=== PATIENT | female | born 1960 | race Caucasian/White ===

== ENCOUNTER 2019-10-03 12:27 | Outpatient (CLI) | payer OTHER, SELFPAY ==
--- NOTE | 2019-10-03 | USCV_ITS ---
Ney Denia Age: 59 Gender: F : 1960 Exam Date: 10/03/2019 12:32 Ordering Phys: Kings Madera MD (Andy) [email or web address] Technologist: Elizabeth Otero [place] [facility] [place]: FU OF CCA STENOSIS Risk Factors: Previous Vascular Surgery: Right Brachial BP: / Left Brachial BP: / Right Left Velocity (cm/s) Spectral Plaque Velocity (cm/s) Spectral Plaque Syst/Diast Broadening Syst/Diast Broadening 53.40/ 15.80 Prox CCA 94.70 / 27.60 47.30/ 17.50 Mid CCA 80.30 / 22.20 54.40/ 20.60 Distal CCA 76.00 / 30.80 131.60/42.80 Hetro Prox ICA 54.90 / 23.60 Hetro 166.80/55.10 Mid ICA 81.50 / 26.50 93.60/ 34.20 Distal ICA 65.80 / 26.00 87.20 Hetro ECA 52.40 Hetro 3.53 ICA/CCA 1.02 Antegrade Vertebral Antegrade 59.50/ 16.50 cm/s 56.10/ 14.60 cm/s Tri Subclavian Tri 217.1 97.50 0 FINDINGS Comparison 02/15/19 CONCLUSIONS Right ICA stenosis 50-69%. Moderate atheromatous plaque right carotid bulb/ICA. ICA velocities decreased from 02/17 Left ICA stenosis <50%. Mild atheromatous plaque left carotid bulb/ICA. Normal antegrade Doppler flow noted in the right vertebral artery. Normal antegrade Doppler flow noted in the left vertebral artery. Mikey Arshad MD (Electronically Signed) Final Date: 03 October 2019 16:15 S
== END 2019-10-03 12:28 | disposition home or self-care (01) ==
PROVIDERS: Family Provider Nurse Practitioner Family; Visit Provider Thoracic Surgery (Cardiothoracic Vascular Surgery)
DX: I65.23 Occlusion and stenosis of bilateral carotid arteries (principal)
CPT/HCPCS: 93880

== ENCOUNTER → 2019-10-18 09:09 | Outpatient (BNVA) | payer OTHER, SELFPAY | PROVIDERS: Family Provider Nurse Practitioner Family; PCP Nurse Practitioner Family; Visit Provider Nurse Practitioner Family | DX: I10 Essential (primary) hypertension (principal); E11.69 Type 2 diabetes mellitus with other specified complication; E78.2 Mixed hyperlipidemia; J44.1 Chronic obstructive pulmonary disease with (acute) exacerbation; I25.10 Atherosclerotic heart disease of native coronary artery without angina pectoris; J30.89 Other allergic rhinitis; I65.21 Occlusion and stenosis of right carotid artery; Z79.4 Long term (current) use of insulin | CPT/HCPCS: 80053; 80061; 83036; 84443; 85025 ==

== ENCOUNTER → 2020-04-17 09:22 | Outpatient (BNVA) | payer OTHER, SELFPAY | PROVIDERS: Family Provider Nurse Practitioner Family; PCP Nurse Practitioner Family; Visit Provider Nurse Practitioner Family | DX: E11.69 Type 2 diabetes mellitus with other specified complication (principal); Z79.4 Long term (current) use of insulin; E78.2 Mixed hyperlipidemia | CPT/HCPCS: 80053; 80061; 83036; 84443; 85025 ==

== ENCOUNTER 2020-05-21 12:13 | Outpatient (CLI) | payer OTHER, SELFPAY ==
--- NOTE | 2020-05-21 12:21 | USCV_ITS ---
Denia Brewster Age: 59 Gender: F : 1960 Exam Date: 05/21/2020 12:36 Ordering Phys: Kings Madera MD (Andy) ([email or web address]) Technologist: Karen West [place] [facility] [place]: STENOSIS Risk Factors: Previous Vascular Surgery: Right Brachial BP: / Left Brachial BP: / Right Left Velocity (cm/s) Spectral Plaque Velocity (cm/s) Spectral Plaque Syst/Diast Broadening Syst/Diast Broadening 82.70/ 16.50 Prox CCA 129.50/ 43.20 79.40/ 23.20 Mid CCA 106.10/ 36.00 65.10/ 19.80 Hetro Distal CCA 102.50/ 34.20 206.90/72.00 Hetro Prox ICA 115.10/ 50.40 140.30/37.80 Mid ICA 118.70/ 52.20 143.90/50.40 Distal ICA 115.10/ 39.60 113.60 Hetro ECA 102.50 2.61 ICA/CCA 1.12 Antegrade Vertebral Antegrade 73.80/ 32.40 cm/s 48.60/ 18.00 cm/s Tri Subclavian Tri FINDINGS Moderate to heavy heterogeneous plaques at the right bifurcation and proximal internal carotid artery Moderate heterogeneous plaques of the left bifurcation and internal carotid artery Intimal thickening in the common carotid arteries bilaterally Normal Doppler flow velocities in the external carotid arteries bilaterally Antegrade flow in the vertebral arteries bilaterally CONCLUSIONS Moderate to heavy heterogeneous plaques at the right bifurcation and proximal internal carotid arterywith velocity elevation consistent with 50-79% stenosis. Moderate heterogeneous plaques of the left bifurcation and internal carotid artery with velocity elevation consistent with 16-49% stenosis. Compared to the study from 10/03/2019, there may not be a significant change Dr Casper Wolfe MD [facility] (Electronically Signed) Final Date: 22 May 2020 17:17 S
== END 2020-05-21 12:14 | disposition home or self-care (01) ==
LOC: RAD 12:17
PROVIDERS: PCP Nurse Practitioner Family; Visit Provider Thoracic Surgery (Cardiothoracic Vascular Surgery)
DX: I65.23 Occlusion and stenosis of bilateral carotid arteries (principal)
CPT/HCPCS: 93880

== ENCOUNTER 2020-06-10 06:53 | Outpatient (CLI) | payer OTHER, SELFPAY ==
[2020-06-10 06:56] VITALS: BMI 30.2
--- NOTE | 2020-06-10 06:57 | ECG_ITS ---
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 Interpretive Statements NAME OF STUDY: LEXISCAN SESTAMIBI STRESS TEST INDICATION: Chest Pain, NOTE: Please note that this is the electrocardiogram portion of the Lexiscan/Sestamibi stress test. The perfusion scan will be documented separately. DATA: Baseline heart rate was 69 beats per minute. Baseline blood pressure was 138/81 millimeters of mercury. Target heart rate was 161. Maximum heart rate achieved was 101. which was 62 % of the predicted target heart rate. Maximum blood pressure was millimeters of mercury. The reason for ending the test was completion of the protocol. The patient did not experience any symptoms. ELECTROCARDIOGRAM: BASELINE: Sinus rhythm. Normal axis. Old anterior wall myocardial infarction, interventricular conduction delay. EXERCISE: After Lexiscan injection, no ST-T changes suggestive of ischemic noted. No arrhythmia noted. CONCLUSION: Please note due to baseline abnormality of the EKG specificity and sensitivity of the EKG portion of LexiScan MIBI stress test will be low 1. EKG not suggestive of ischemia 2. Lexiscan injection unremarkable. 3. Perfusion scan will be documented separately. Electronically Signed On 06-12-2020 16:55:49 CDT by Veda Rincon M.D. [email or web address]
--- NOTE | 2020-06-10 06:58 | NMCV_ITS ---
NM shantell perf SPECT r/s* [id number] Denia Brewster Age: 59 Gender: F : 1960 Exam Date: 06/10/2020 07:46 Ordering Phys: Veda Rincon MD ([email or web address]) Technologist: INGRID Shore Exam Location: [facility] Indications: CHEST PAIN ON EXERTION STRESS TEST [facility] IMAGE PROTOCOL Rest/Stress 1 Lexiscan Day Radiopharmaceutical Dose (mCi) Administration Site Administered by Rest: Tc-99m 10.7 IV INGRID Patterson Sestamibi Stress:Tc-99m 32.4 IV INGRID Patterson Sestamibi Rest: 10-Jun-2020 60 Discovery 630 Stress: 10-Jun-2020 30 Discovery 630 0.4mg Lexiscan. Images obtained in supine and prone position. SPECT RESULTS Technical Quality: Good Raw Data Analysis: Breast attenuation Image Corrections: No attenuation or motion correction applied Summed Stress Score: 8 Summed Rest Score: 3 Summed Difference Score: 5 PERFUSION FINDINGS Medium-sized area of patchy decreased tracer uptake noted at the baseline resting image in basal to distal inferior and distal anterior wall which showed mild reversibility in the distal inferior wall suggestive of old myocardial infarction surrounded by mild natalie-infarct ischemia in the RCA territory. Distal anterior wall reduced tracer uptake improved on stress images suggestive of artifact in the anterior wall territory. FUNCTIONAL RESULTS (calculated via Gated SPECT) Stress Image LV EF (%): 79 Stress EDV (mL):61 TID: 1.31 Stress ESV (mL):13 Rest Image LV EF (%): 79 FUNCTIONAL FINDINGS: Inferior wall hypokinesia IMPRESSIONS Medium-sized area of old myocardial infarction versus scarring surrounded by small area of mild natalie-infarct ischemia noted in the distal RCA territory. EKG segment will be documented separately. Clinical correlation advised. Veda Rincon MD (Electronically Signed) Final Date: 10 June 2020 15:29 S
[2020-06-10] MEDS: regadenoson 0.4 Mg/5 ml Syringe IVP (09:16)
[2020-06-10 09:35] VITALS: BP 175/91; PULSE 93
== END 2020-06-10 06:54 | disposition home or self-care (01) ==
LOC: CDL 06:53
PROVIDERS: PCP Nurse Practitioner Family; Visit Provider Internal Medicine Cardiovascular Disease
DX: R07.9 Chest pain, unspecified (principal); I25.10 Atherosclerotic heart disease of native coronary artery without angina pectoris; I65.21 Occlusion and stenosis of right carotid artery; I25.9 Chronic ischemic heart disease, unspecified; I25.2 Old myocardial infarction
CPT/HCPCS: 78452; 93017; A9500; J2785

== ENCOUNTER → 2020-06-15 10:31 | Outpatient (BNVA) | payer OTHER, SELFPAY | PROVIDERS: PCP Nurse Practitioner Family; Visit Provider Nurse Practitioner Family | DX: Z11.59 Encounter for screening for other viral diseases (principal) | CPT/HCPCS: 87635 ==

== ENCOUNTER 2020-06-18 07:54 | Outpatient (CLI) | payer OTHER, SELFPAY ==
--- NOTE | 2020-06-18 08:00 | CT_ITS ---
WS: [id number] CTA NECK TECHNIQUE: Contrast enhanced CTA of the neck with coronal and sagittal reformatted images and maximum intensity projection (MIP) images. NASCET criteria utilized. CLINICAL INFORMATION: carotid stenosis COMPARISON: CTA 9 5017 and ultrasound May 21, 2020 DLP: 971.[address] scans at [facility] use at least one of these dose optimization techniques: automat ed exposure control; mA and/or kV adjustment per patient size (includes targeted exams where dose is matched to clinical indication); or iterative reconstruction. FINDINGS: RIGHT: Right common carotid artery is patent. Stenosis right proximal ICA measures 76%. Moderate calc ified atheromatous disease. Right ICA is patent to the skull base. Moderate Cavernous carotid calcifi cation. LEFT: Left common carotid artery is patent. Mild atheromatous plaque left carotid bulb extending into the ICA with 56% stenosis. Left ICA is patent to the skull base. Moderate left cavernous chronic froy cification. Both vertebral arteries are patent. Right dominant vertebral artery. Proximal basilar artery is paten t. Mastoid air cells well aerated. Small retention cyst right maxillary sinus. Small amount of fluid in the right sphenoid sinus. Lung apices are well aerated. Mild spondylitic changes cervical spine. CT/CT angio neck [id number] IMPRESSION: 1. Right proximal ICA stenosis measures 76% slightly progressed from June 06, 2018 2. Left proximal ICA stenosis measures 56% 3. Right dominant vertebral artery. Both vertebral arteries are patent. 4. Moderate cavernous carotid calcification.
[2020-06-18] MEDS: iodixanol 320 mg/mL 100mL Btl IV (08:33)
== END 2020-06-18 07:55 | disposition home or self-care (01) ==
LOC: RADWPI 08:01
PROVIDERS: Family Provider Nurse Practitioner Family; PCP Nurse Practitioner Family; Visit Provider Thoracic Surgery (Cardiothoracic Vascular Surgery)
DX: I65.23 Occlusion and stenosis of bilateral carotid arteries (principal)
CPT/HCPCS: 70498; Q9967

== ENCOUNTER → 2020-08-21 13:08 | Outpatient (BNVA) | payer OTHER, SELFPAY | PROVIDERS: PCP Nurse Practitioner Family; Visit Provider Internal Medicine Cardiovascular Disease | DX: U07.1 COVID-19 (principal) | CPT/HCPCS: 87635 ==

== ENCOUNTER 2020-08-25 09:04 | Day surgery (SDC) | payer OTHER, SELFPAY ==
[2020-08-25] VITALS (47 sets, daily range): BP systolic 118–154; BP diastolic 56–86; PULSE 65–107; RESP 12–22; TEMP 36.5–36.7; O2SAT 93–96; BMI 29.4
--- NOTE | 2020-08-25 09:00 | XACV_ITS ---
Ht: 157 cm Wt: 73 kg BSA: 1.81 m2 Gender: Female : 1960 Any Known Allergies: Penicillins Exam Priority: Routine Procedure(s): Procedure Description: Diagnostic procedure Procedure Description: PCI procedure Procedure Description: Drug Eluting Coronary Stent Procedure Description: PTCA Procedure Description: Miscellaneous Procedure Description: ACT Procedure Description: Coronary Angiography Procedure Description: Pressure Wire Diagnostic Cath Status: Elective Diagnostic Findings * LM has 0% stenosis. * LAD has 0% stenosis. * 1st Diag: Mild 40% stenosis, TAYLOR: 3 flow. * Mid Circumflex Coronary Artery: Moderate 70% stenosis, TAYLOR: 3 flow. * dRCA: Severe 90% stenosis, TAYLOR: 3 flow. * Coronary angiography shows right dominance. Interventional Findings * dRCA: 90% stenosis treated with AB TREK 2.50X25 RX BALLOON and TUNDE R ALIRIO 3.0X26 JANNA. 0% residual stenosis, TAYLOR: 3 flow. Conclusions 1. There is severe coronary artery disease with two vessel disease. 2. dRCA was treated with Balloon and Drug Eluting Stent. 3. FFR: After equalizing the distal and proximal pressure of FFR wire proximal to the lesion, mid LCx lesion was crossed with FFR wire. IFR was noted to be non significant 0.94, IV adenosine at rate of 140 mcg/min was started. Patient did not compliant of any symptoms, at then end of two minutes FFR was recorded as 0.93, which is not significant . Recommendations * 1-Return to inpatient for close monitoring and routine cath care 2-Risk factor modification for secondary prevention 3-Statin and aspirin 81 mg life--long, if tolerated 4-Continue Plavix 75mg p.o. daily for at least one year. We will assess at the end of one year again to continue if further or not 5-Continue optimal medical management 6-Follow up with Dr. Rincon in four weeks and your primary care in 10 days. Diagnostic RX Recommendation: PCI w/o planned CABG Pressures Phase:Rest AO : 100 / 56 ( 74 ) @ 5:20:00 AM 110 / 59 ( 80 ) @ 5:21:00 AM 107 / 64 ( 82 ) @ 5:25:00 AM 125 / 77 ( 97 ) @ 5:32:00 AM 172 / 69 ( 96 ) @ 5:33:00 AM 130 / 83 ( 103 ) @ 5:42:00 AM 104 / 51 ( 68 ) @ 5:47:00 AM 145 / 47 ( 72 ) @ 5:48:00 AM 157 / 86 ( 115 ) @ 5:54:00 AM 171 / 94 ( 127 ) @ 5:56:00 AM Clinical Evaluation EBL: 5mL-10mL Procedural Details Procedure Consent Obtained. Pre-Procedure Time Out. Identified patient by full name and date of as verbalized by the patient/guarantor. Does the consent match the physician's order: Yes. Accurate & Complete Informed Consent: Yes. Inpatient/Outpatient History & Physical on Chart: Yes. If H&P is completed, is and addenduem needed: No; If yes, is the addendum complete: N/A. Visualize and Verify Site with Patient/Guarantor: N/A. Relevant Radiology Images available: N/A. Pre-op teaching completed and patient verbalized understanding. The risks, benefits, and alternatives of sedation and/or procedure were discussed by physician. The patient agrees to continue. Procedure started. [facility] Clinical Fraility Score: 3: Managing Well. Sound Tester Indications: New Onset Angina. Chest Pain Symptom Assessment: Typical Angina Symptoms. Cardiovascular Instability: No. Correct patient, site and procedure confirmed by cath team. PERRLA. 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 Lungs clear x 5 lobes. IV Site on Arrival: 20 gauge in the right forearm. IV Fluids: 0.9% NaCl at KVO. 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 Pre Procedural Pulses: bilateral dorsalis pedis was 2+. Pre Procedural Pulses: bilateral posterior tibial was 1+. Pre Procedural Pulses: bilateral radial was 3+. Oxygen started at 2liters/min via nasal canula. bilateral groins was prepped with chloroprep then draped in the usual sterile fashion. right radial was prepped with chloroprep then draped in the usual sterile fashion. Baseline sample Acquired. HR: 64 BPM. Equipment: 6F - Radial. Cardiac Cath Pack. ACIST Manifold Kit Model BT 2000. Heparinized Saline (2 units/mL), 1000 mL bag. Physician notified. Physician arrived. Physician scrubbed in. Immediate Pre-Procedure Time Out. Correct Patient: Yes; Correct Procedure: Yes; Correct Site: Yes; Correct Patient Position: Yes; Correct Supplies: Yes; Dried Flammable Prep: Yes; Blood Products Available: N/A;. Lidocaine 1% infiltrated to the right radial. Arterial access obtained. A 5 liberian TIG catheter in over wire. Multiple views taken of left coronary artery. Catheter redirected to the RCA. Multiple views taken of right coronary artery. Catheter removed over the exchange wire. 6 liberian JR 4 guide catheter was inserted over the wire. [place] guidewire was advanced through the guide catheter to lesion in the mid RCA. Wire out. Guide catheter out. Inventory is StepUp [place] XT .014 [address]cm [address] Guidewire. 6 liberian JR 4 guide catheter was inserted over the wire. [place] guidewire was advanced through the guide catheter to lesion in the mid RCA. Inflation number : 1 A AB TREK 2.50X25 RX BALLOON was prepped and advanced across the Mid RCA , then inflated to 18 VANDA for 0:19 seconds. AP pads applied to patient. Balloon out. Inflation Number : 2 A TUNDE Ornelas ALIRIO 3.0X26 JANNA -Lot Number# [id number] exp date 05/26/2022 was prepped and advanced across the Mid RCA. The stent was deployed at 16 VANDA for 0:32 seconds. Stent balloon out over wire. Wire pulled back. Results checked. Wire out. Guide catheter out. Inventory is CRD 6FR XB 3 GUIDE. 6 liberian XB 3 guide catheter was inserted over the wire. FFR guidewire was advanced through the guide catheter to lesion in the mid Circ. IFR 0.94. An FFR value of 0.93 was obtained for a lesion located at Mid CX. Wire out. Guide catheter out. Physician scrubbed out. A TR Band was successful obtaining hemostatsis at the Right Radial artery insertion site. TR band placed. Hemostasis obtained. Post Procedure: Pulses reassessed and unchanged. PERRLA. 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 No VTE prophylaxis required. ACT drawn. Results 259 seconds. Therapeutic limits - pre-heparin administration 90-150 seconds and monitoring heparin during a vascular procedure >250 seconds. Medication's Wasted: Lidocaine 1% = 18 mL. Medication's Wasted: Nitro = 49.6 mg. Medication's Wasted: Heparin = 3000 units. Medication's Wasted: Other = adenosine 20 mg. Medication's Wasted: Other = versed 1 mg. Total IV fluids: 117 mL. Contrast type used: Omnipaque 300 mgI/mL, 500 mL bottle. Post-op diagnosis: severe mid RCA CAD. Complications: none. Estimated blood loss: 5mL-10mL. PCI Indication: obstructive RCA CAD. Procedure completed. Patient transferred by wheelchair to 1st floor. Vital chart was stopped. Access Site Site: Right Radial artery Sheath Size: 6 Fr Hemostasis Method: TR Band Hemostasis Success: Successful Procedure Medications Start: 11:11 AM Stop: 11:11 AM Medication: Versed Amount: 1 mg Route: I.V. Start: 11:00 AM Stop: 11:00 AM Medication: Fentanyl Amount: 50 mcg Route: I.V. Start: 11:00 AM Stop: 11:00 AM Medication: Versed Amount: 1 mg Route: I.V. Start: 11:12 AM Stop: 11:12 AM Medication: Fentanyl Amount: 50 mcg Route: I.V. Start: 11:16 AM Stop: 11:16 AM Medication: Nitrogylcerin Amount: 200 mcg Route: I.A. Start: 11:20 AM Stop: : AM Medication: Heparin Amount: 5000 units Route: I.V. Start: 11:23 AM Stop: :23 AM Medication: Versed Amount: 1 mg Route: I.V. Start: 11:28 AM Stop: :28 AM Medication: Heparin Amount: 3000 units Route: I.V. Start: 11:37 AM Stop: 11:37 AM Medication: Versed Amount: 1 mg Route: I.V. Start: 11:47 AM Stop: 11:47 AM Medication: Nitrogylcerin Amount: 200 mcg Route: I.C. Start: 12:06 PM Stop: 12:06 PM Medication: Versed Amount: 1 mg Route: I.V. Start: 12:20 PM Stop: 12:20 PM Medication: Plavix Amount: 300 mg Route: P.O. I, the attending physician, have reviewed and verified all procedure medications. Yes, all medications given per verbal order History/Risk Factors Hypertension: Yes Dyslipidemia: No Peripheral Arterial Disease (PAD): No Myocardial Infarction (NE): No Obesity: No Renal Disease: No Tobacco Use: Current/Recent(w/in 1 year) Prior Interventions PCI: Yes CABG: No Valve Surgery: No Report Signatures Finalized by Veda Rincon MD on 09/07/2020 07:12 PM
[2020-08-25] MEDS: diphenhydrAMINE 50 mg Capsule PO (09:21)
[2020-08-25 10:11] LABS: Basophils % 0.2 %; Eosinophils # 0.1 10^3/uL (0.0-0.8); Hematocrit 42.1 % (37.0-47.0); Lymphocytes % 33.2 %; Mean Corpuscular HGB Conc 33.3 g/dL (30.0-36.0); Mean Corpuscular Hemoglobin 31.3 pg (28.0-34.0); Mean Platelet Volume 10.3 fL (7.4-10.4); Monocytes # 0.5 10^3/uL (0.2-0.9); Monocytes % 8.2 %; Neutrophils # 3.31 10^3/uL (1.8-7.7); Neutrophils % 56.2 %; Nucleated Red Blood Cells % 0 %; Platelet Count 282 10^3/cmm (130-400); Red Blood Count 4.48 10^6/uL (4.1-5.3); Red Cell Distribution Width 12.4 % (12.1-15.1); White Blood Count 5.9 10^3/uL (4.0-10.0)
[2020-08-25 10:24] LABS: Blood Urea Nitrogen 12 mg/dL (8-23); Calcium 9.6 mg/dL (8.5-10.5); Carbon Dioxide 24 mmol/L (22-29); Chloride 102 mmol/L (98-107); Glomerular Filtration Rate 85.4 mL/min (90-130); Glucose 204 mg/dL (65-115); Osmolality Calculated 294 mOsm/kg (285-295); Sodium 139 mmol/L (136-145)
--- NOTE | 2020-08-25 10:39 | W.PM.OPSUD ---
Surgery/Procedure H&P Update DATE OF PROCEDURE: August 25, 2020 DATE H&P PERFORMED: 08/05/20 H&P UPDATE INFORMATION: I have reviewed H&P completed within last 30 days, I have examined patient prior to procedure and No changes to prior documentation PREOP DIAGNOSIS: Chest pain, abnormal stress test, preop PLANNED PROCEDURE: Operation Date: 08/25/20 10:00 Proposed Procedures p Cardiac Catheterization 57091 / I25.10(Left) - Veda Rincon MD PATIENT REASSESSED PRIOR TO SEDATION, WITH NO CHANGE NOTED: Yes PHYSICAL EXAM: alert, oriented x 3 and clear to auscultation bilaterally AIRWAY EVAL/ANESTHESIA PLAN: normal airway, ASA II, Risks, benefits & alternatives of sedation and/or procedure discussed and Patient agrees to continue as planned
--- NOTE | 2020-08-25 14:42 | PC.NURSE ---
1215. recd. from laboratory asst per w/c. tr band to right wrist. 14ml. no bruising.
--- NOTE | 2020-08-25 15:01 | PC.NURSE ---
2ml. released from tr band.
--- NOTE | 2020-08-25 15:02 | PC.NURSE ---
ambulating to bathroom w/o difficulty
[2020-08-25] MEDS: pneumococcal (23 valent) SDV 0.5 mL IM (15:23)
--- NOTE | 2020-08-25 15:39 | PC.NURSE ---
1420. 2 ml released from tr band.
--- NOTE | 2020-08-25 16:25 | PC.NURSE ---
3 ml removed from tr band.
--- NOTE | 2020-08-25 16:32 | PC.NURSE ---
tr. band removed. no oozing or hematoma. Instructed to not use arm to lift or push up with.
--- NOTE | 2020-08-25 22:59 | PC.NURSE ---
ASSUMING CARE Patient alert and oriented x 4. No continuous fluids running. Patient complains of headache, norco given by day shift nurse. Patient up ad tucker to the bathroom. No needs at this time.
--- NOTE | 2020-08-25 23:05 | PC.NURSE ---
TRANSFER TO [place] Report called to Bill Guy RN. Patient taken to med/surg room 259-1 via wheelchair, no oxygen. Belongings with patient in patient belongings bag. Call light put within reach, no needs at this time.
[2020-08-25] MEDS: HYDROcodone-acetaminophen 5-325 mg Tablet 1 TAB PO (23:53)
[2020-08-26 03:59] VITALS: BP 123/67; PULSE 75; RESP 17; TEMP 36.6; O2SAT 97
[2020-08-26 07:00] VITALS: BP 137/84; PULSE 75; RESP 18; TEMP 37.6; O2SAT 92
--- NOTE | 2020-08-26 10:13 | P.SS_ITS ---
Short Stay Summary Providers Date of Admit/Discharge: 09/08/20 Attending Provider: Veda Rincon MD Primary Care Provider: VERONICA Sherman Chief Complaint: UNABLE TO SEE DX HPI History of Present Illness Denia Brewster is a 60 year old female underwent left heart cath for chest pain shortness of breath and abnormal stress test found to have mid RCA lesion which is treated with drug-eluting stent. Post PCI he denies any complaint doing fine from a cardiovascular perspective. We will discharge patient home. Advised to follow-up with cardiology nurse practitioner Jazmin Armas in 7 days. Review of Systems Musc: Denies: joint warmth All/Imm: Denies: acute wheezing Home Meds/Allergies Home Medications and Allergies Home Medications Medication Instructions Recorded Confirmed Type albuterol sulfate 2.5 mg/0.5 mL 5 mg INHALATION Q4H PRN 10/07/19 09/02/20 History solution for nebulization aspirin 81 mg tablet,delayed 81 mg PO DAILY tab 10/07/19 09/02/20 History release coenzyme Q10 100 mg capsule 100 mg PO DAILY cap 10/07/19 09/02/20 History ibuprofen 200 mg capsule 200 mg PO Q6H PRN 10/07/19 09/02/20 History omega-3 fatty acids 500 mg capsule 500 mg PO DAILY cap 10/07/19 09/02/20 History dextromethorphan-guaifenesin ER 60 1 tab PO Q12H PRN tab 08/05/20 09/02/20 History mg-1,200 mg tab,extend release,12hr fluticasone propionate 50 2 spray INTRANASAL BID PRN each 08/05/20 09/02/20 History mcg/actuation nasal spray,suspension Allergies Allergy/AdvReac Type Severity Reaction Status Date / Time bupropion [From Wellbutrin] Allergy hives Verified 09/02/20 10:44 codeine Allergy itch Verified 09/02/20 10:44 Penicillins Allergy rash Verified 09/02/20 10:44 PFSH Acute PFSH: Medical History Atherosclerotic heart disease of [place] coronary artery without angina pectoris Calcified lymph nodes Carotid stenosis COPD (chronic obstructive pulmonary disease) Coronary artery disease Diabetes Environmental and seasonal allergies Hyperlipidemia Vitamin D deficiency Surgical History H/O section H/O coronary angioplasty H/O heart artery stent History of cholecystectomy Family History Other CAD (coronary artery disease) Cancer Social History Smoking and tobacco status: current every day smoker Alcohol intake: current Vitals/I&O/Wt Last Vital Signs Temp 99.6 F 08/26/20 07:00 Pulse 75 08/26/20 07:00 Resp 18 08/26/20 07:00 BP 137/84 08/26/20 07:00 Pulse Ox 92 08/26/20 07:00 08/25/20 08/26/20 08/26/20 22:59 06:59 14:59 Intake Total 720 / 720 120 / 840 240 / 240 Output Total 200 / 200 Balance 720 / 720 -80 / 640 240 / 240 Weight last 48 hrs Weight 161 lb Physical Exam Narrative: EXAM NARRATIVE: GENERAL: Patient is alert, awake and oriented x3. NECK: No jugular vein distension. HEENT: No cyanosis. No icterus. No pallor. HEART: Regular S1 and S2. No murmur, rub or gallop. LUNGS: Clear to auscultate bilaterally. ABDOMEN: Soft, nontender and nondistended. Positive bowel sounds. No guarding, rebound or tenderness. CENTRAL NERVOUS SYSTEM: Grossly nonfocal. EXTREMITIES: Lower extremities without edema bilaterally. 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 request for service Routin e Exams 08/25/20 09:00 Taken Discharge Plan Discharge Patient Disposition: Home Condition: Stable Prescriptions: Continued albuterol sulfate 2.5 mg/0.5 mL solution for nebulization 5 mg INHALATION Q4H PRN (Reason: Shortness Of Breath) RF: 0 aspirin 81 mg tablet,delayed release (DR/EC) 81 mg PO DAILY RF: 0 coenzyme Q10 [Co Q-10] 100 mg capsule 100 mg PO DAILY RF: 0 ibuprofen 200 mg capsule 200 mg PO Q6H PRN (Reason: Pain) RF: 0 omega-3 fatty acids 500 mg capsule 500 mg PO DAILY RF: 0 nitroglycerin [Nitrostat] 0.4 mg tablet, sublingual 0.4 mg SUBLINGUAL Q5M PRN (Reason: chest pain) Qty: 1 RF: 2 hydrochlorothiazide 25 mg tablet 25 mg PO QAM 30 Days Qty: 30 RF: 5 All Day Allergy (cetirizine) 10 mg capsule 10 mg PO DAILY 30 Days Qty: 30 RF: 5 albuterol sulfate [ProAir HFA] 90 mcg/actuation HFA aerosol inhaler 2 puff INHALATION Q4H PRN (Reason: shortness of breath or wheezing) 30 Days Qty: 1 RF: 5 metformin 500 mg tablet extended release 24 hr 1,000 mg PO BID 30 Days Qty: 120 RF: 5 fluticasone propionate [Flonase Allergy Relief] 50 mcg/actuation spray,suspension 2 spray INTRANASAL BID PRN (Reason: Allergy Symptoms) RF: 0 dextromethorphan-guaifenesin [Mucinex DM] 60-1,200 mg tablet extended release 12 hr 1 tab PO Q12H PRN (Reason: Congestion) RF: 0 Toprol XL 100 mg tablet extended release 24 hr 100 mg PO DAILY 90 Days Qty: 90 RF: 5 clopidogrel 75 mg tablet 75 mg PO DAILY 90 Days Qty: 90 RF: 5 Changed atorvastatin 10 mg tablet 40 mg PO QPM Qty: 30 RF: 6 Discontinued isosorbide mononitrate 30 mg tablet extended release 24 hr 30 mg PO BID Qty: 180 RF: 3 No Action ezetimibe 10 mg tablet 10 mg PO DAILY Qty: 90 RF: 2 Discharge Orders: Discharge Order (Routine); Ordered 08/26/20 Ordered By: Veda Rincon Referrals: Veda Rincon MD [Physician] - 09/02/20 10:15 am Patient Instructions: Left Heart Catheterization (DC), Right Heart Catheterization (DC), Coronary Angioplasty (DC), Carotid Artery Disease (DC), Coronary Artery Disease in Women (DC), COPD Stoplight Activity Restrictions/Additional Instructions: No lifting with right hand for next 24 hours. Continue clopidogrel for at least 1 more year after that we will decide to continue further or not. Patient can proceed with carotid artery surgery without stopping Plavix unresectable risk for anesthesia and surgery. Follow-up with Jazmin Armas cardiology nurse practitioner in 7 to 10 days. Follow-up with Dr. Mcknight in 3 months. Please stop taking your isosorbide mononitrate extended release 24 hour 30mg tablet. Attestations Medical Necessity Statement*: Require continuation hospitalization for above defined care. Time Spent in Patient Care*: greater than 30 min Quality Metrics Clinical Quality Measures: During this hospital stay, did patient experience: None Coding Level of Care Code Established Pt Acute Business Support Professional for Chg Fwd Patient Type Established History Expanded Problem Focused Exam Expanded Problem Focused Medical Decision Making Moderate Complexity
--- NOTE | 2020-08-26 10:49 | PC.NURSE ---
pt received discharge paperwork as well as meditronic wallet card. all questions answered.
[2020-08-26 10:54] VITALS: BP 130/80; PULSE 78; RESP 16; TEMP 36.7; O2SAT 94
[2020-08-26 11:03] VITALS: BP 130/80; PULSE 78; RESP 16; TEMP 36.7; O2SAT 94
== END 2020-08-26 11:04 | disposition home or self-care (01) ==
LOC: CCL 09:10 → ICU 12:33 → MEDSURG 23:20
PROVIDERS: PCP Nurse Practitioner Family; Visit Provider Internal Medicine Cardiovascular Disease
DX: I25.10 Atherosclerotic heart disease of native coronary artery without angina pectoris (principal); I10 Essential (primary) hypertension; Z79.82 Long term (current) use of aspirin; J44.9 Chronic obstructive pulmonary disease, unspecified; E11.9 Type 2 diabetes mellitus without complications; E78.5 Hyperlipidemia, unspecified; E55.9 Vitamin D deficiency, unspecified; F17.210 Nicotine dependence, cigarettes, uncomplicated
CPT/HCPCS: 12345; 36415; 80048; 85025; 85347; 90732; 93454; 93571; C1725; C1769; C1874; C1887; C1894; C9600; J0153; J1644; J2250; J3010; J3490; J7030; Q0163; Q9967

== ENCOUNTER → 2020-09-02 11:28 | Outpatient (BNVA) | payer OTHER, SELFPAY | PROVIDERS: PCP Nurse Practitioner Family; Visit Provider Nurse Practitioner Family | DX: E78.2 Mixed hyperlipidemia (principal); I25.10 Atherosclerotic heart disease of native coronary artery without angina pectoris | CPT/HCPCS: 80048 ==

== ENCOUNTER → 2020-11-05 09:36 | Outpatient (BNVA) | payer OTHER, SELFPAY | PROVIDERS: PCP Nurse Practitioner Family; Visit Provider Nurse Practitioner Family | DX: E11.69 Type 2 diabetes mellitus with other specified complication (principal); E78.2 Mixed hyperlipidemia; R53.83 Other fatigue; I25.10 Atherosclerotic heart disease of native coronary artery without angina pectoris; Z79.4 Long term (current) use of insulin | CPT/HCPCS: 80053; 80061; 82306; 82607; 83036; 84443 ==

== ENCOUNTER 2021-02-24 10:14 | Outpatient (CLI) | payer OTHER, SELFPAY ==
--- NOTE | 2021-02-24 10:15 | XR_ITS ---
WS: [id number] Exam: XR KUB [id number] Date/Time of Exam: 02/24/2021 10:30 AM Reason For Exam: N20.0 - Calculus of kidney Comparison 08/27/2019. Small calcifications superimpose both kidneys and may represent renal calculi. No bowel obstruction o r free air. Signs of prior cholecystectomy. Organ margins are unremarkable in appearance. Degenerativ e change and mild scoliosis of the L-spine. XR/XR KUB [id number] IMPRESSION: 1. Small calcification superimpose both kidneys and may represent renal calculi . 2. No acute abdominal process.
== END 2021-02-24 10:15 | disposition home or self-care (01) ==
PROVIDERS: PCP Nurse Practitioner Family; Visit Provider Urology
DX: N20.0 Calculus of kidney (principal)
CPT/HCPCS: 74018

== ENCOUNTER → 2021-06-23 15:35 | Outpatient (BNVA) | payer OTHER, SELFPAY | PROVIDERS: PCP Nurse Practitioner Family; Visit Provider Internal Medicine | DX: Z01.812 Encounter for preprocedural laboratory examination (principal); E11.69 Type 2 diabetes mellitus with other specified complication; E78.2 Mixed hyperlipidemia; I10 Essential (primary) hypertension; F17.200 Nicotine dependence, unspecified, uncomplicated; Z79.4 Long term (current) use of insulin | CPT/HCPCS: 80053; 80061; 84443 ==

== ENCOUNTER 2021-07-15 11:19 | Outpatient (CLI) | payer OTHER, SELFPAY ==
--- NOTE | 2021-07-15 11:30 | MM_ITS ---
WS: [id number] BILATERAL SCREENING DIGITAL MAMMOGRAM WITH CAD HISTORY: Z12.31 - Encounter for screening mammogram for malignant ... COMPARISON: 09/19/2011 and 05/13/2010. Bilateral CC and MLO views submitted. Computer aided detection analyzed. Breast composition: The breasts are heterogeneously dense, which may obscure small masses. No suspici ous masses, microcalcifications or architectural distortion. Increasing calcifications scattered thro ughout each breast. No focal cluster of calcifications. MM/[place] [id number] IMPRESSION: BI-RADS: 2-Benign FOLLOW UP: 1 Year Follow-up
== END 2021-07-15 11:20 | disposition home or self-care (01) ==
LOC: RADSHAW 11:24
PROVIDERS: PCP Nurse Practitioner Family; Visit Provider Nurse Practitioner Family
DX: Z12.31 Encounter for screening mammogram for malignant neoplasm of breast (principal)
CPT/HCPCS: 77067

== ENCOUNTER → 2021-11-16 08:41 | Outpatient (BNVA) | payer OTHER, SELFPAY | PROVIDERS: PCP Nurse Practitioner Family; Visit Provider Internal Medicine | DX: E11.69 Type 2 diabetes mellitus with other specified complication (principal); E78.2 Mixed hyperlipidemia; I10 Essential (primary) hypertension; Z79.4 Long term (current) use of insulin; E11.9 Type 2 diabetes mellitus without complications | CPT/HCPCS: 80053; 80061; 83036; 84443; 85025 ==

== ENCOUNTER 2022-02-01 09:01 | Outpatient (CLI) | payer OTHER, SELFPAY ==
--- NOTE | 2022-02-01 09:30 | USCV_ITS ---
Denia Brewster Age: 61 Gender: F : 1960 Exam Date: 02/01/2022 09:40 Ordering Phys: Jean Claude Fisher M.D ([email or web address]) Technologist: ÁNGEL [place]am [place] [facility] [place]: H/O RT ICA STENT Risk Factors: Previous Vascular Surgery: Right Brachial BP: / Left Brachial BP: / Right Left Velocity (cm/s) Spectral Plaque Velocity (cm/s) Spectral Plaque Syst/Diast Broadening Syst/Diast Broadening 42.70/ 11.50 Prox CCA 91.30 / 22.80 73.80/ 24.90 Mid CCA 118.30/ 28.90 83.90/ 26.40 Distal CCA 93.70 / 29.80 74.90/ 14.50 Prox ICA 97.10 / 31.10 57.20/ 17.60 Mid ICA 81.40 / 26.70 70.40/ 28.40 Distal ICA 76.00 / 28.50 248.10 ECA 69.70 0.89 ICA/CCA 0.82 Antegrade Vertebral Antegrade 66.80/ 17.10 cm/s 39.40/ 13.80 cm/s Tri Subclavian Tri 261.4 194.2 0 0 CONCLUSIONS Right ICA stenosis <50%. Rt carotid stent is patent Left ICA stenosis <50%. Mild atheromatous plaque left carotid bulb/ICA. Normal antegrade Doppler flow noted in the right vertebral artery. Normal antegrade Doppler flow noted in the left vertebral artery. Mikey Arshad MD (Electronically Signed) Final Date: 01 Feb 2022 13:59 S
== END 2022-02-01 09:02 | disposition home or self-care (01) ==
LOC: RAD 09:07
PROVIDERS: PCP Nurse Practitioner Family; Visit Provider Internal Medicine
DX: I65.23 Occlusion and stenosis of bilateral carotid arteries (principal)
CPT/HCPCS: 93880

== ENCOUNTER 2023-08-21 13:55 | Emergency (ER) | payer OTHER, SELFPAY ==
[2023-08-21 14:07] VITALS: BMI 30.2
[2023-08-21 14:10] VITALS: BP 127/73; PULSE 84; RESP 15; TEMP 37.1; O2SAT 94
--- NOTE | 2023-08-21 14:16 | PC.NURSE ---
pt was brought straight back to triage for EKG. EKG in triage began to malfunction. Triage nurse called charge for help. EKG was obtained from main ER equipment when available. Charge and Dept Cutting Inspector notified.
--- NOTE | 2023-08-21 14:24 | ECG_ITS ---
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 Measurements Intervals [place] Rate: 86 P: 24 AK: 153 QRS: 8 QRSD: 93 T: 14 QT: 379 QTc: 453 Interpretive Statements SINUS RHYTHM ANTEROSEPTAL MYOCARDIAL INFARCTION , PROBABLY OLD [40+ ms Q WAVE IN V1-V4] No previous ECG available for comparison Electronically Signed On 08-21-2023 19:06:07 BLADE OPERATOR by Casper Wolfe M.D. [id number]
--- NOTE | 2023-08-21 14:24 | XRR_ITS ---
PROCEDURE INFORMATION: Exam: XR Chest Exam date and time: 08/21/2023 3:29 PM Age: 63 years old Clinical indication: Pain; Chest pressure; Additional info: Chest pain TECHNIQUE: Imaging protocol: Radiologic exam of the chest. Views: 1 view. COMPARISON: CR XR KUB [id number] 02/24/2021 10:42 AM FINDINGS: Lungs: Mild hazy left basilar reticulation. No dense consolidation. Pleural spaces: Unremarkable. No pleural effusion. No pneumothorax. Heart/Mediastinum: Unremarkable. No cardiomegaly. Vasculature: Aortic arch atherosclerotic calcification. Bones/joints: Mild right shoulder degenerative changes. Intraperitoneal space: Right upper abdomen surgical clips. Other findings: Right neck surgical clips. XR/XR chest 1V portable [id number] IMPRESSION: Mild hazy left basilar reticulation may represent atelectasis, developing infection not entirely excluded.
--- NOTE | 2023-08-21 15:25 | W.ED.CHESTPA ---
HPI - Chest Pain General: Chief Complaint: Chest Pain Stated Complaint: chest pain Time Seen by Provider: 08/21/23 15:25 History of Present Illness: 63-year-old female presents emerged department complaints of intermittent left sided chest pain that started approximately 1 week ago. She states that 2 days ago she had a 8 out of 10 sharp stabbing pain. She states it worsened when she was walking up the steps approximately 15 steps. She states she does have a coronary artery disease history and has had 3 cardiac stents placed and a carotid stent placed. She states Dr. Yoseph Abbasi is the climatology teacher who placed her stents. She describes her pain as a squeezing pressure type pain and does state that it radiated to the left arm. She states that today she is currently pain-free and is not short of breath. She denies nausea, vomiting, dizziness or lightheaded feeling. Review of Systems General: Reports: 10 or more systems reviewed and unremarkable except in HPI and below Card: Reports: chest pain [facility] PFSH: Medical History Atherosclerotic heart disease of [place] coronary artery without angina pectoris Calcified lymph nodes Carotid stenosis COPD (chronic obstructive pulmonary disease) Coronary artery disease Diabetes Environmental and seasonal allergies Hyperlipidemia Renal calculus, left Vitamin D deficiency Surgical History H/O section H/O coronary angioplasty H/O heart artery stent History of cholecystectomy Family History Other CAD (coronary artery disease) Cancer Social History Smoking and tobacco/nicotine status: current every day tobacco/nicotine user Alcohol intake: current Substance/Drug Use: never Marital status: Physical Exam Narrative: EXAM NARRATIVE: Constitutional: the patient appears well nourished and with normal development. Vital signs reviewed as documented. HENMT: Normocephalic, atraumatic. Extermal ears with normal appearance without drainage. Nose without drainage, normal appearance. Mucus membranes moist. Neck is supple, No jugular venous distension, trachea is midline, no appreciable carotid bruits. No lymphadenopathy. No meningeal signs. Flexion, extension and lateral rotation is without pain. Eyes: Pupils are equal, round, reactive to light and accommodation. No scleral icterus. Extra-ocular movement are intact. Thorax is symmetrical and with equal rise and fall with respirations. Resp: Lungs are clear to auscultation. No wheezes, rales, crackles or ronchi at present. Cardio: Regular rate and rhythm. Positive S1, S2. No appreciable murmurs, rubs or gallops. GI: Abdominal exam reveals normal bowel sounds to all quadrants. No organomegaly. No obvious palpable masses noted. No hepatomegally appreciated. Soft, nontender to palpation. Extremity: Extremities are non-edematous and both femoral and pedal pulses are 2+ and equal bilaterally. Moves all extremities well, sensation in all extremities. Neuro: Alert and oriented x4, person, place, time and situation. Cranial nerves II through XII are grossly intact, there is no focal neurological deficits that I can appreciate at present. Motor strength in the upper and lower extremities are equal and bilateral 5/5. Psych: Cooperative, calm, normal thought process, appropriate judgment. Skin: No lesions, rashes. No gross abnormalities noted. Back: Symmetrical, no obvious deformity, No CVA tenderness Course Vital Signs: Vital signs: Vital Signs Temperature 98.7 F 08/21/23 14:10 Pulse Rate 69 08/21/23 16:19 Respiratory Rate 16 08/21/23 16:19 Blood Pressure 155/74 08/21/23 16:19 Pulse Oximetry 95 08/21/23 16:19 Oxygen Delivery Me thod Room Air 08/21/23 14:10 MDM - Chest Pain Medical Decision Making Physical exam completed and documented, I will obtain a CBC, CMP cardiac enzymes cardiac twelve-lead EKG as well as a chest x-ray. I reviewed the patient's previous medical record and her previous echocardiogram I suspect most likely differential diagnosis that this is atypical chest pain but we will rule out NSTEMI and STEMI, costochondritis, Medical Records I reviewed the patient's medical records. Lab Data I reviewed the patient's lab results. 08/21/23 15:35 08/21/23 15:35 Radiology Impressions Chest X-Ray 08/21/23 14:24 IMPRESSION: Mild hazy left basilar reticulation may represent atelectasis, developing infection not entirely excluded. Laboratory Results WBC 6.26 10^3/uL (3.29-11.43) 08/21/23 15:35 RBC 4.63 10^6/uL (3.85-5.65) 08/21/23 15:35 Hgb 14.70 g/dL (11.27-16.99) 08/21/23 15:35 Hct 43.6 % (36-47) 08/21/23 15:35 MCV 94.2 fl (85-98) 08/21/23 15:35 MCH 31.7 pg (27-33) 08/21/23 15:35 MCHC 33.7 g/dL (30-55) 08/21/23 15:35 RDW 11.9 % (12.1-15.1) L 08/21/23 15:35 Plt Count 245 10^3/cmm (157-399) 08/21/23 15:35 MPV 10.6 fL (7.4-10.4) H 08/21/23 15:35 Neut % (Auto) 56.7 % 08/21/23 15:35 Lymph % (Auto) 34.7 % 08/21/23 15:35 Stevens % (Auto) 6.7 % 08/21/23 15:35 Eos % (Auto) 1.4 % 08/21/23 15:35 Baso % (Auto) 0.3 % 08/21/23 15:35 Neut # (Auto) 3.55 10^3/uL (1.8-7.7) 08/21/23 15:35 Lymph # (Auto) 2.2 10^3/uL (0.8-4.8) 08/21/23 15:35 Stevens # (Auto) 0.4 10^3/uL (0.2-0.9) 08/21/23 15:35 Eos # (Auto) 0.1 10^3/uL (0.0-0.8) 08/21/23 15:35 Baso # (Auto) 0.0 10^3/uL (0.0-0.1) 08/21/23 15:35 Nucleated RBC % (auto) 0 % 08/21/23 15:35 Nucleated RBCs # 0.0 /100WBC 08/21/23 15:35 Sodium 135 mmol/L (136-145) L 08/21/23 15:35 Potassium 3.8 mmol/L (3.5-5.1) 08/21/23 15:35 Chloride 98 mmol/L (98-107) 08/21/23 15:35 Carbon Dioxide 24 mmol/L (22-29) 08/21/23 15:35 Anion Gap 16.8 (5-19) 08/21/23 15:35 BUN 12 mg/dL (8-23) 08/21/23 15:35 Creatinine 0.8 mg/dL (0.5-0.9) 08/21/23 15:35 GFR Calculation 72.4 mL/min (90-130) L 08/21/23 15:35 Glucose 439 mg/dL (65-115) H 08/21/23 15:35 Calculated Osmolality 299 mOsm/kg (285-295) H 08/21/23 15:35 Calcium 9.6 mg/dL (8.5-10.5) 08/21/23 15:35 Total Bilirubin 0.3 mg/dL (0.15-1.2) 08/21/23 15:35 AST 42 U/L (0-32) H 08/21/23 15:35 ALT 50 U/L (0-33) H 08/21/23 15:35 Alkaline Phosphatase 74 U/L (35-105) 08/21/23 15:35 Troponin T Baseline 9 ng/L (0-10) 08/21/23 15:35 Troponin T 120 Minute 8.91 ng/L (0-10) 08/21/23 17:09 NT-Pro-B Natriuret Pep 130 pg/mL (0-125) H 08/21/23 15:35 Total Protein 7.3 g/dL (6.6-8.7) 08/21/23 15:35 Albumin 3.8 g/dL (3.5-5.2) 08/21/23 15:35 Globulin 3.5 g/dL (1.3-4.6) 08/21/23 15:35 All radiology interpretation(s) finalized by discharge Discharge Plan Discharge Patient Disposition: Home Clinical Impression: Atypical chest pain Condition: Stable Prescriptions: No Action MOVE [facility] PO DAILY albuterol sulfate 2.5 mg/0.5 mL solution for nebulization 5 mg INHALATION Q4H PRN (Reason: Shortness Of Breath) aspirin 81 mg tablet,delayed release (DR/EC) 81 mg PO DAILY coenzyme Q10 [Co Q-10] 100 mg capsule 100 mg PO DAILY ibuprofen 200 mg capsule 200 mg PO Q6H PRN (Reason: Pain) omega-3 fatty acids 500 mg capsule 500 mg PO DAILY clopidogrel 75 mg tablet 75 mg PO DAILY Qty: 90 3RF hydrochlorothiazide 25 mg tablet 25 mg PO QAM Qty: 90 3RF fluticasone propionate [Flonase Allergy Relief] 50 mcg/actuation spray,suspension 2 spray INTRANASAL BID PRN (Reason: Allergy Symptoms) nitroglycerin [Nitrostat] 0.4 mg tablet, sublingual 0.4 mg SUBLINGUAL Q5M PRN (Reason: chest pain) Qty: 1 2RF All Day Allergy (cetirizine) 10 mg capsule 10 mg PO DAILY 30 Days Qty: 30 5RF albuterol sulfate [ProAir HFA] 90 mcg/actuation HFA aerosol inhaler 2 puff INHALATION Q4H PRN (Reason: shortness of breath or wheezing) 30 Days Qty: 1 5RF escitalopram oxalate 10 mg tablet 10 mg PO DAILY Qty: 90 3RF Januvia 100 mg tablet 100 mg PO DAILY Qty: 90 3RF metformin 500 mg tablet extended release 24 hr See Rx Instructions .ROUTE .COMPLEX Qty: 120 5RF Dose Instruction: TAKE TWO TABLETS BY MOUTH TWICE DAILY Rx Instructions: TAKE TWO TABLETS BY MOUTH TWICE DAILY metoprolol succinate 50 mg tablet extended release 24 hr 50 mg PO DAILY Qty: 90 3RF atorvastatin 10 mg tablet 40 mg PO QPM Qty: 30 6RF Discharge Orders: Discharge ED (Routine); Ordered 08/21/23 Ordered By: Fred Bullard Referrals: Angel Mckinney MD [Primary Care Provider] - Yoseph Abbasi MD [Physician] - Discharge Diet: Advance as tolerated Discharge Activity: Resume usual activity Patient Instructions: Opioid Safety, Pain Management Activity Restrictions/Additional Instructions: Activity Restrictions/Additional Instructions: Thank you for choosing [facility] for your healthcare needs today. Please realize that you were seen in the Emergency Department and that we are providing you with an emergency medical screening exam and this may not be complete and all inclusive of all the testing and or medical work-up that you may need to determine your ailment or severity of your illness. It is very important that you follow-up as instructed with your Primary care provider or Specialist for additional evaluation and to discuss your medical treatment plan. You may return to the Emergency Department should you have concerns or if your condition changes or worsens in any way. Coding Level of Care Code ED Starting Sheet Tank Operator for Maria Oneill
[2023-08-21 15:31] VITALS: BP 132/89; PULSE 79; RESP 13; O2SAT 92
[2023-08-21 15:56] LABS: Basophils % 0.3 %; Eosinophils # 0.1 10^3/uL (0.0-0.8); Eosinophils % 1.4 %; Hematocrit 43.6 % (36-47); Lymphocytes # 2.2 10^3/uL (0.8-4.8); Lymphocytes % 34.7 %; Mean Corpuscular HGB Conc 33.7 g/dL (30-55); Mean Corpuscular Hemoglobin 31.7 pg (27-33); Mean Corpuscular Volume 94.2 fl (85-98); Mean Platelet Volume 10.6 fL (7.4-10.4); Monocytes # 0.4 10^3/uL (0.2-0.9); Monocytes % 6.7 %; Neutrophils # 3.55 10^3/uL (1.8-7.7); Neutrophils % 56.7 %; Nucleated Red Blood Cells % 0 %; Platelet Count 245 10^3/cmm (157-399); Red Blood Count 4.63 10^6/uL (3.85-5.65); Red Cell Distribution Width 11.9 % (12.1-15.1); White Blood Count 6.26 10^3/uL (3.29-11.43)
[2023-08-21 16:19] VITALS: BP 155/74; PULSE 69; RESP 16; O2SAT 95
[2023-08-21 16:25] LABS: Alanine Aminotransferase 50 U/L (0-33); Albumin Level 3.8 g/dL (3.5-5.2); Alkaline Phosphatase 74 U/L (35-105); Anion Gap 16.8 (5-19); Aspartate Amino Transferase 42 U/L (0-32); Blood Urea Nitrogen 12 mg/dL (8-23); Calcium 9.6 mg/dL (8.5-10.5); Carbon Dioxide 24 mmol/L (22-29); Chloride 98 mmol/L (98-107); Globulin 3.5 g/dL (1.3-4.6); Glomerular Filtration Rate 72.4 mL/min (90-130); Glucose 439 mg/dL (65-115); Osmolality Calculated 299 mOsm/kg (285-295); Potassium 3.8 mmol/L (3.5-5.1); Sodium 135 mmol/L (136-145); Total Bilirubin 0.3 mg/dL (0.15-1.2); Total Protein 7.3 g/dL (6.6-8.7)
[2023-08-21 16:33] LABS: Troponin(5th) Baseline 9 ng/L (0-10)
--- NOTE | 2023-08-21 16:34 | ECG_ITS ---
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 Measurements Intervals [place] Rate: 70 P: 21 KS: 142 QRS: 20 QRSD: 92 T: 21 QT: 407 QTc: 439 Interpretive Statements SINUS RHYTHM No previous ECG available for comparison QS pattern in lead V2 Electronically Signed On 08-21-2023 19:08:29 ENVIRONMENTAL HEALTH SAFETY MANAGER by Casper Wolfe M.D. [id number]
[2023-08-21 17:00] LABS: NT Pro B Type Natriuretic Pept 130 pg/mL (0-125)
[2023-08-21 18:23] LABS: Troponin 5 2HR 8.91 ng/L (0-10); Troponin 5 2HR Delta -0.09 ABS# (0-10)
== END 2023-08-21 18:42 | disposition home or self-care (01) ==
PROVIDERS: Physician Assistant; Emergency Provider Internal Medicine; PCP Internal Medicine
DX: R07.89 Other chest pain (principal); Z79.82 Long term (current) use of aspirin; Z79.02 Long term (current) use of antithrombotics/antiplatelets; Z79.84 Long term (current) use of oral hypoglycemic drugs; Z72.0 Tobacco use; I25.10 Atherosclerotic heart disease of native coronary artery without angina pectoris; J44.9 Chronic obstructive pulmonary disease, unspecified; E11.9 Type 2 diabetes mellitus without complications; E78.5 Hyperlipidemia, unspecified; Z98.61 Coronary angioplasty status
CPT/HCPCS: 36415; 71045; 80053; 83880; 84484; 85025; 93005; 99285

== ENCOUNTER → 2025-04-15 11:59 | Outpatient (BNVA) | payer OTHER, SELFPAY | PROVIDERS: PCP Internal Medicine; Visit Provider Nurse Practitioner Family | DX: R19.7 Diarrhea, unspecified (principal) | CPT/HCPCS: 80053; 82274; 85025; 87045; 87427; 87449; 87493 ==